=== PATIENT | female | born 1935 | race Caucasian/White ===

== ENCOUNTER 2017-11-23 10:41 | Emergency (ER) | payer OTHER, MEDICARE ==
[~2017-11-23] VITALS: Ht 157.5 cm; Wt 74.8 kg
--- NOTE | ~2017-11-23 | EKG ---
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: SILVANOIA : 1935 Requested By: Ria Wilson Order Number: [id number] MD: Rohan Pederson Measurements Intervals [place] Rate: 59 P: 41 AL: 145 QRS: -35 QRSD: 108 T: 105 QT: 400 QTc: 397 Interpretive Statements Sinus rhythm Low voltage, precordial leads Abnormal R-wave progression, consider lead misplacement Compared to ECG 10/10/2015 17:10:53 Low QRS voltage now present Early repolarization now present Electronically Signed On 11-23-2017 16:40:51 YOUTH ACCOMMODATION SUPPORT WORKER by Rohan Pederson [email or web address] <ELECTRONICALLY SIGNED> By: Rohan Pederson MD, [facility] 11/23/17 1640 [id number] [id number] Rohan Pederson MD, [facility] /EPI
[~2017-11-23 10:41] MED LIST: ACETAMINOPHEN325 M1 PO; ALPRAZOLAM 0.0.25 M1 PO; ARICEPT10 M1 PO; BACTRIM DS TAB1 EACH PO; CELEXA 10 MG TA10 M1 PO; IBUPROFEN 600600 M1 PO; MACROBID 100 M100 M1 PO; NORCO 5-325 TA1 EACH PO; TRAMADOL 50 MG50 MG PO; VICODIN 5-5001 EACH PO; VITAMIN D250000 UNIT PO; ZOFRAN ODT4 MG PO
[2017-11-23 11:25] LABS: ABSOLUTE NEUTROPHILS 7.3 thou/uL (1.4-8.2); BASOPHILS 0.4 % (0.0-2.0); EOSINOPHILS 0.4 % (0.0-3.0); HEMATOCRIT 44.6 % (37.0-47.0); HEMOGLOBIN 14.6 gm/dL (12.0-15.0); LYMPHOCYTES 3.1 % (24.0-44.0); MCH 29.6 pg (26.0-34.0); MCHC 32.7 g/dL (28.0-37.0); MCV 90.6 fL (80.0-100.0); MONOCYTES 4.6 % (1.0-8.0); PLATELET COUNT 186 thou/uL (150-400); POLYS 91.5 % (36.0-66.0); RBC 4.92 mil/uL (4.20-5.00); RDW 14.3 % (10.5-14.5)
[2017-11-23 11:33] LABS: ANION GAP 5 mmol/L (7-16); BUN 18 mg/dL (7-18); CALCIUM 9.3 mg/dL (8.5-10.1); CHLORIDE 107 mmol/L (98-107); CO2 31 mmol/L (21-32); CREATININE 1.1 mg/dL (0.6-1.0); GLUCOSE 123 mg/dL (74-106); POTASSIUM 4.4 mmol/L (3.5-5.1); SODIUM 143 mmol/L (136-145)
[2017-11-23 11:42] LABS: TROPONIN-I < 0.04 ng/mL (<0.06)
[2017-11-23 11:45] LABS: URINE BILIRUBIN NEGATIVE (Negative); URINE BLOOD 1+ (Negative); URINE CLARITY CLOUDY; URINE COLOR YELLOW; URINE GLUCOSE-RANDOM* NEGATIVE (Negative); URINE KETONES NEGATIVE (Negative); URINE LEUKOCYTES 3+ (Negative); URINE NITRITE POSITIVE (Negative); URINE PROTEIN (DIPSTICK) NEGATIVE (Negative); URINE SPECIFIC GRAVITY 1.025 (1.005-1.035); URINE UROBILINOGEN 0.2 E.U./dl (0.2-1.0)
[2017-11-23] MEDS ORDERED: KEFLEX500 M1 PO (11:49)
[2017-11-23 11:58] LABS: SQUAMOUS 0-3 Few /LPF (0-3)
[2017-11-23 11:59] LABS: CASTS None Seen /LPF (None Seen); CRYSTALS None Seen /LPF (None Seen); URINE RBC 0-2 Rare /HPF (0-2); URINE WBC >25 Many /HPF (0-5)
== END 2017-11-23 12:00 | disposition home or self-care (01) ==
LOC: ER 10:41
PROVIDERS: Emergency Medicine
DX: R55 Syncope and collapse (principal); R45.1 Restlessness and agitation; N39.0 Urinary tract infection, site not specified; F03.90 Unspecified dementia, unspecified severity, without behavioral disturbance, psychotic disturbance, mood disturbance, and anxiety; G30.9 Alzheimer's disease, unspecified; F02.80 Dementia in other diseases classified elsewhere, unspecified severity, without behavioral disturbance, psychotic disturbance, mood disturbance, and anxiety; F32.9 Major depressive disorder, single episode, unspecified; F41.9 Anxiety disorder, unspecified

== ENCOUNTER 2019-08-09 07:39 | Emergency (ER) | payer OTHER, MEDICARE ==
[~2019-08-09] VITALS: Ht 170.2 cm; Wt 68.0 kg
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
[~2019-08-09 07:39] MED LIST changes: +KEFLEX500 M1 PO
[2019-08-09] MEDS ORDERED: PROBIOTIC1 EAC1 PO (08:00)
[2019-08-09] MEDS ORDERED: VITAMIN D3400 UNIT PO (08:00)
[2019-08-09] MEDS ORDERED: NAMENDA 10 MG T10 MG PO (08:00)
[2019-08-09] MEDS ORDERED: OXYBUTYNIN 5 MG5 M2 PO (08:00)
[2019-08-09 10:23] LABS: ABSOLUTE NEUTROPHILS 8.1 thou/uL (1.4-8.2); BASOPHILS 0.6 % (0.0-2.0); EOSINOPHILS 0.5 % (0.0-3.0); HEMATOCRIT 43.9 % (37.0-47.0); HEMOGLOBIN 14.5 gm/dL (12.0-15.0); LYMPHOCYTES 7.8 % (24.0-44.0); MCH 30.2 pg (26.0-34.0); MCHC 32.9 g/dL (28.0-37.0); MCV 91.7 fL (80.0-100.0); MONOCYTES 5.3 % (1.0-8.0); PLATELET COUNT 217 thou/uL (150-400); POLYS 85.8 % (36.0-66.0); RBC 4.79 mil/uL (4.20-5.00); RDW 14.6 % (10.5-14.5); WBC 9.4 thou/uL (4.0-11.0)
[2019-08-09 10:30] LABS: ANION GAP 3 mmol/L (7-16); BUN 19 mg/dL (7-18); CALCIUM 9.6 mg/dL (8.5-10.1); CHLORIDE 106 mmol/L (98-107); CO2 32 mmol/L (21-32); GLUCOSE 100 mg/dL (74-106); POTASSIUM 4.3 mmol/L (3.5-5.1); SODIUM 141 mmol/L (136-145)
[2019-08-09 10:38] LABS: TROPONIN-I <0.06 ng/mL (<0.06)
[2019-08-09] MEDS ORDERED: LEVAQUIN 500 M500 MG PO (11:09)
[2019-08-09 11:44] VITALS: BP 154/78
--- NOTE | 2019-08-11 13:26 | EKG ---
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 : 1935 Requested By: Rohan Vazquez Order Number: [id number] MD: Mehran Layton Measurements Intervals [place] Rate: 59 P: 37 RI: 147 QRS: -41 QRSD: 118 T: 45 QT: 446 QTc: 442 Interpretive Statements Sinus rhythm Left anterior fascicular block Low voltage, precordial leads Left ventricular hypertrophy Baseline wander in lead(s) V3 Compared to ECG 11/23/2017 10:39:12 Left anterior fascicular block now present Left ventricular hypertrophy now present Electronically Signed On 08-11-2019 13:26:16 CDT by Mehran Layton [email or web address] <ELECTRONICALLY SIGNED> By: Mehran Layton MD 08/11/19 1326 8 8 Mehran Layton MD /EPI
== END 2019-08-09 11:46 | disposition home or self-care (01) ==
LOC: ER 07:39
PROVIDERS: Emergency Medicine
DX: S01.81XA Laceration without foreign body of other part of head, initial encounter (principal); R07.89 Other chest pain; F41.9 Anxiety disorder, unspecified; F32.9 Major depressive disorder, single episode, unspecified; G30.9 Alzheimer's disease, unspecified; F02.80 Dementia in other diseases classified elsewhere, unspecified severity, without behavioral disturbance, psychotic disturbance, mood disturbance, and anxiety; Z90.10 Acquired absence of unspecified breast and nipple; Z88.1 Allergy status to other antibiotic agents; W18.39XA Other fall on same level, initial encounter; Y92.129 Unspecified place in nursing home as the place of occurrence of the external cause; Y93.89 Activity, other specified; Y99.8 Other external cause status

== ENCOUNTER 2021-07-05 13:29 | Emergency (ER) | payer OTHER, MEDICARE ==
[~2021-07-05] VITALS: Ht 167.6 cm; Wt 68.0 kg
--- NOTE | ~2021-07-05 | EMS ---
[address] [address] EMS Patient Care Report Name: MICHAEL WOOD Room #: REG BRIAN Mejía#: [id number] Admission: 07/05/21 Attend Phys: Discharge: Date of : 34 Report #: [id number] THIS REPORT FOR: //name// Report Transmitted: 07/05/2021 16:20 EMS Care Summary [facility] MED-ACT Incident [id number] @ 07/05/2021 12:44 Incident Location [facility] [place] [address] Patient MICHAEL WOOD Female, 85 Years 1935 Patient Address [address] [place] [address] Patient History Dementia,Alzheimer's,Breast Cancer,Anxiety Disorder (Panic Attacks),Depression,Pressure Ulcer,Hypotension,Insomnia, Patient Allergies Other drug allergy, Patient Medications Nystatin, Oxybutynin, Donepezil, Lasix, Namenda, Chief Complaint prolapsed bladder Disposition Transported No Lights/[place] Dispatch Reason Sick Person Transported To [facility] Narrative Arrived to find the patient in a supine position in her bed appearing to be [address] [address] EMS Patient Care Report Name: MICHAEL WOOD Room #: REG Sabino.#: [id number] Admission: 07/05/21 Attend Phys: Discharge: Date of : 33 Report #: [id number] asleep. LFD attending. Staff reported that the patient had a prolapsed bladder. She reported that they are usually able to reposition her bladder without issue but they were unsuccessful today. The patient had no complaints. The patient was able to stand and pivot to the stretcher with assistance and without incident. Secured the patient and moved her to the unit. Began VS monitoring. Transported the patient with rails up and seat belts on. No changes noted en route. At destination, the patient stood and pivoted to the hospital bed with assistance and without incident. Transferred care and gave report to the unit RN. 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 It is designed to provide pertinent information for the following purposes: continuity of care, clinical quality, and state data reporting. The complete legal record is available to ED staff and administrators of the receiving hospital in [employer]'s Patient Tracker. All data [facility] [address] [place] [address] EMS Patient Care Report Name: MICHAEL WOOD ASHLEY Room #: REG BRIAN Mejía#: [id number] Admission: 07/05/21 Attend Phys: Discharge: Date of : 34 Report #: [id number] is provided "as is."
[~2021-07-05 13:29] MED LIST changes: +LEVAQUIN 500 M500 MG PO; +NAMENDA 10 MG T10 MG PO; +OXYBUTYNIN 5 MG5 M2 PO; +PROBIOTIC1 EAC1 PO; +VITAMIN D3400 UNIT PO
[2021-07-05 19:13] VITALS: BP 128/71
== END 2021-07-05 19:13 | disposition home or self-care (01) ==
LOC: ER 13:29
DX: Z71.1 Person with feared health complaint in whom no diagnosis is made (principal); F03.90 Unspecified dementia, unspecified severity, without behavioral disturbance, psychotic disturbance, mood disturbance, and anxiety; F32.9 Major depressive disorder, single episode, unspecified; F41.9 Anxiety disorder, unspecified; Z79.899 Other long term (current) drug therapy; Z88.6 Allergy status to analgesic agent